=== PATIENT | female | born 1960 | race Caucasian/White ===

== ENCOUNTER → 2016-11-26 | Outpatient (REF) | payer MEDICAID ==
[2016-11-26 11:21] LABS: BASO % 0.7 % (0.0-1.0); EOS # 0.2 K/mm3 (0.0-0.50); EOS % 3.3 % (0.0-3.0); LARGE UNSTAINED CELL # 0.1 K/mm3 (0.0-0.4); LYMPH # 1.4 K/mm3 (1.5-4.5); LYMPH % 25.6 % (24.0-44.0); MEAN CORPUSCULAR HEMOGLOBIN 30.7 pg (27.0-33.0); MEAN CORPUSCULAR HGB CONC 33.4 g/dl (32.0-36.5); MEAN CORPUSCULAR VOLUME 92.1 fl (80.0-96.0); MONO # 0.2 K/mm3 (0.0-0.8); MONO % 4.4 % (0.0-5.0); NEUTROPHILS # 3.1 K/mm3 (1.8-7.7); NEUTROPHILS % 64.1 % (36.0-66.0); PLATELET COUNT, AUTOMATED 249 k/mm3 (150-450); RED CELL DISTRIBUTION WIDTH 13.4 % (11.5-14.5); WHITE BLOOD COUNT 4.9 K/mm3 (4.0-10.0)
[2016-11-26 11:29] LABS: ALBUMIN 3.7 GM/DL (3.2-5.2); ALBUMIN/GLOBULIN RATIO 0.93 (1.00-1.93); ALKALINE PHOSPHATASE 87 U/L (45-117); ALT/SGPT 15 U/L (12-78); ANION GAP 6 MEQ/L (8-16); AST/SGOT 31 U/L (15-37); BILIRUBIN,TOTAL 0.3 MG/DL (0.2-1.0); BLOOD UREA NITROGEN 15 MG/DL (7-18); CALCIUM LEVEL 8.8 MG/DL (8.5-10.1); CARBON DIOXIDE LEVEL 29 MEQ/L (21-32); CHLORIDE LEVEL 106 MEQ/L (98-107); CHOLESTEROL LEVEL 182 MG/DL (<200); FREE T4 1.06 NG/DL (0.76-1.46); GAMMA GLUTAMYLTRANSPEPTIDASE 13 U/L (5-55); GLOMERULAR FILTRATION RATE > 60.0 (>51); GLUCOSE, FASTING 86 MG/DL (70-105); POTASSIUM SERUM 4.5 MEQ/L (3.5-5.1); SODIUM LEVEL 141 MEQ/L (136-145); TOTAL PROTEIN 7.7 GM/DL (6.4-8.2); TRIGLYCERIDES LEVEL 72 MG/DL (<150)
== END ==
LOC: M SFHCCLAY 08:35
PROVIDERS: ATTEND Physician Assistant
DX: Z13.6 Encounter for screening for cardiovascular disorders (principal); R93.2 Abnormal findings on diagnostic imaging of liver and biliary tract

== ENCOUNTER → 2017-09-14 | Outpatient (REF) | payer OTHER | LOC: M LAB REF 09:22 | DX: J02.9 Acute pharyngitis, unspecified (principal) ==

== ENCOUNTER → 2019-07-28 | Outpatient (REF) | payer OTHER ==
[2019-07-28 11:59] LABS: BASO # 0.1 10^3/uL (0.0-0.2); BASO % 1.1 % (0.0-1.0); EOS # 0.1 10^3/uL (0.0-0.5); EOS % 2.5 % (0.0-3.0); HEMATOCRIT 38.3 % (36.0-47.0); HEMOGLOBIN 12.7 g/dl (12.0-15.5); LYMPH # 1.4 10^3/uL (1.5-5.0); MEAN CORPUSCULAR HEMOGLOBIN 30.8 pg (27.0-33.0); MEAN CORPUSCULAR HGB CONC 33.2 g/dl (32.0-36.5); MEAN CORPUSCULAR VOLUME 92.7 fl (80.0-96.0); MONO # 0.7 10^3/uL (0.0-0.8); MONO % 12.7 % (0.0-5.0); NEUTROPHILS % 57.3 % (36.0-66.0); PLATELET COUNT, AUTOMATED 239 10^3/uL (150-450); RED BLOOD COUNT 4.13 10^6/uL (4.00-5.40); WHITE BLOOD COUNT 5.3 10^3/uL (4.0-10.0)
[2019-07-28 13:33] LABS: ALT/SGPT 21 U/L (12-78); BILIRUBIN,TOTAL 0.5 MG/DL (0.2-1.0); BLOOD UREA NITROGEN 16 MG/DL (7-18); CALCIUM LEVEL 9.3 MG/DL (8.5-10.1); CARBON DIOXIDE LEVEL 26 MEQ/L (21-32); CHLORIDE LEVEL 108 MEQ/L (98-107); CHOLESTEROL LEVEL 201 MG/DL (<200); CHOLESTEROL RISK RATIO 2.161 (<5); CREATININE FOR GFR 0.92 MG/DL (0.55-1.30); GLOMERULAR FILTRATION RATE > 60.0 (>51); GLUCOSE, FASTING 87 MG/DL (70-100); HDL CHOLESTEROL 93 MG/DL (>40); LDL CHOLESTEROL 99 MG/DL (<100); NON-HDL-C 108 MG/DL; POTASSIUM SERUM 4.4 MEQ/L (3.5-5.1); SODIUM LEVEL 139 MEQ/L (136-145); TOTAL PROTEIN 8.2 GM/DL (6.4-8.2); TRIGLYCERIDES LEVEL 43 MG/DL (<150)
== END ==
LOC: M SFHCCAPE 08:01
PROVIDERS: ATTEND Physician Assistant
DX: Z00.00 Encounter for general adult medical examination without abnormal findings (principal)

== ENCOUNTER → 2021-02-20 | Outpatient (REF) | payer OTHER | LOC: M SFHCCAPE 13:33 | PROVIDERS: ATTEND Physician Assistant | DX: J22 Unspecified acute lower respiratory infection (principal); J02.9 Acute pharyngitis, unspecified ==

== ENCOUNTER → 2022-08-09 | Outpatient (REF) | payer OTHER ==
[2022-08-09 18:29] LABS: BASO % 0.8 % (0.0-1.0); EOS # 0.1 10^3/uL (0.0-0.5); EOS % 1.9 % (0.0-3.0); HEMATOCRIT 38.6 % (36.0-47.0); HEMOGLOBIN 12.6 g/dl (12.0-15.5); LYMPH # 1.1 10^3/uL (1.5-5.0); LYMPH % 23.3 % (24.0-44.0); MEAN CORPUSCULAR HGB CONC 32.6 g/dl (32.0-36.5); MEAN CORPUSCULAR VOLUME 94.8 fl (80.0-96.0); MONO # 0.5 10^3/uL (0.0-0.8); MONO % 10.4 % (2.0-8.0); NEUTROPHILS % 63.4 % (36.0-66.0); PLATELET COUNT, AUTOMATED 221 10^3/uL (150-450); RED BLOOD COUNT 4.07 10^6/uL (4.00-5.40); WHITE BLOOD COUNT 4.7 10^3/uL (4.0-10.0)
[2022-08-09 18:43] LABS: ERYTHROCYTE SEDIMENTATION RATE 35 mm/hr (0-30)
[2022-08-09 18:56] LABS: C REACTIVE PROTEIN QUANTITATIV < 0.40 MG/DL (<1.0); CPK CREATINE PHOSPHOKINASE 55 U/L (34-145)
[2022-08-09 18:57] LABS: ALBUMIN 4.1 G/DL (3.2-5.2); ALKALINE PHOSPHATASE 96 U/L (46-116); ALT/SGPT 23 U/L (7.0-40); AST/SGOT 43 U/L (<34); BILIRUBIN,TOTAL 0.5 MG/DL (0.3-1.2); BLOOD UREA NITROGEN 14 MG/DL (9-23); CALCIUM LEVEL 8.9 MG/DL (8.3-10.6); CARBON DIOXIDE LEVEL 26 MMOL/L (20-31); CHLORIDE LEVEL 101 MMOL/L (98-107); CREATININE FOR GFR 0.77 MG/DL (0.55-1.30); GLOMERULAR FILTRATION RATE > 60.0 (>45); GLUCOSE, FASTING 86 MG/DL (74-106); MAGNESIUM LEVEL 1.8 MG/DL (1.8-2.4); POTASSIUM SERUM 4.2 MMOL/L (3.5-5.1); SODIUM LEVEL 134 MMOL/L (136-145); TOTAL PROTEIN 7.4 G/DL (5.7-8.2)
[2022-08-09 18:58] LABS: VITAMIN B12 LEVEL 358 PG/ML (211-911)
[2022-08-11 21:08] LABS: ANA (HEP2) Positive (.)
== END ==
LOC: M SFHCCAPE 11:26
PROVIDERS: ATTEND Physician Assistant
DX: R25.2 Cramp and spasm (principal); R68.2 Dry mouth, unspecified

== ENCOUNTER → 2022-09-19 | Outpatient (REF) | payer OTHER ==
[2022-09-19 17:46] LABS: FREE T4 1.05 NG/DL (0.89-1.76)
[2022-09-19 17:47] LABS: THYROID STIMULATING HORMONE 1.591 uIU/ML (0.55-4.78)
== END ==
LOC: M SFHCCAPE 10:24
PROVIDERS: ATTEND Physician Assistant
DX: L65.9 Nonscarring hair loss, unspecified (principal)

== ENCOUNTER → 2022-09-19 | Outpatient (CLI) | payer OTHER | LOC: M CLY 11:05 | PROVIDERS: ATTEND Physician Assistant | DX: R05.1 Acute cough (principal); R91.8 Other nonspecific abnormal finding of lung field ==

== ENCOUNTER → 2022-10-04 | Outpatient (CLI) | payer OTHER | LOC: M RAD 08:48 | PROVIDERS: ATTEND Physician Assistant | DX: R91.1 Solitary pulmonary nodule (principal) ==

== ENCOUNTER → 2022-12-24 | Outpatient (REF) | payer OTHER ==
[2022-12-24 18:38] LABS: BASO # 0.1 10^3/uL (0.0-0.2); EOS # 0.2 10^3/uL (0.0-0.5); EOS % 4.6 % (0.0-3.0); HEMATOCRIT 42.1 % (36.0-47.0); HEMOGLOBIN 13.6 g/dl (12.0-15.5); LYMPH # 1.4 10^3/uL (1.5-5.0); LYMPH % 28.2 % (24.0-44.0); MEAN CORPUSCULAR HEMOGLOBIN 30.6 pg (27.0-33.0); MEAN CORPUSCULAR HGB CONC 32.3 g/dl (32.0-36.5); MEAN CORPUSCULAR VOLUME 94.6 fl (80.0-96.0); MONO # 0.5 10^3/uL (0.0-0.8); MONO % 10.2 % (2.0-8.0); NEUTROPHILS # 2.7 10^3/uL (1.5-8.5); NEUTROPHILS % 55.8 % (36.0-66.0); PLATELET COUNT, AUTOMATED 219 10^3/uL (150-450); RED BLOOD COUNT 4.45 10^6/uL (4.00-5.40); WHITE BLOOD COUNT 4.8 10^3/uL (4.0-10.0)
[2022-12-24 18:41] LABS: APPEARANCE, URINE CLEAR (CLEAR); BACTERIA, URINE AUTO NEGATIVE (NEGATIVE); BILIRUBIN, URINE AUTO NEGATIVE (NEGATIVE); BLOOD, URINE BLOOD NEGATIVE (NEGATIVE); COLOR, URINE YELLOW (YELLOW); GLUCOSE, URINE (UA) AUTO NEGATIVE (NEGATIVE); KETONE, URINE AUTO NEGATIVE (NEGATIVE); LEUKOCYTE ESTERASE, URINE AUTO NEGATIVE (NEGATIVE); NITRITE, URINE AUTO NEGATIVE (NEGATIVE); PROTEIN, URINE AUTO NEGATIVE (NEGATIVE); RBC, URINE AUTO 0 /HPF (0-3); SPECIFIC GRAVITY URINE AUTO 1.009 (1.002-1.035); SQUAMOUS EPITHELIAL CELL UR AU 0 /HPF (0-6); UROBILINOGEN, URINE AUTO 0.2 mg/dL (0.0-2.0); WBC, URINE AUTO 0 /HPF (0-3)
[2022-12-24 18:49] LABS: C REACTIVE PROTEIN QUANTITATIV < 0.40 MG/DL (<1.0)
[2022-12-24 18:50] LABS: COMPLEMENT C3 99.2 MG/DL (90.0-170.0); COMPLEMENT C4 24.9 MG/DL (12-36)
[2022-12-24 18:51] LABS: ALBUMIN 3.6 G/DL (3.2-5.2); ALKALINE PHOSPHATASE 88 U/L (46-116); ALT/SGPT 20 U/L (7.0-40); AST/SGOT 40 U/L (<34); BILIRUBIN,TOTAL 0.5 MG/DL (0.3-1.2); BLOOD UREA NITROGEN 14 MG/DL (9-23); CALCIUM LEVEL 8.9 MG/DL (8.3-10.6); CARBON DIOXIDE LEVEL 25 MMOL/L (20-31); CHLORIDE LEVEL 105 MMOL/L (98-107); CREATININE FOR GFR 0.77 MG/DL (0.55-1.30); GLOMERULAR FILTRATION RATE > 60.0 (>45); GLUCOSE, FASTING 93 MG/DL (74-106); POTASSIUM SERUM 4.2 MMOL/L (3.5-5.1); SODIUM LEVEL 138 MMOL/L (136-145); TOTAL PROTEIN 7.4 G/DL (5.7-8.2)
[2022-12-24 19:01] LABS: ERYTHROCYTE SEDIMENTATION RATE 42 mm/hr (0-30); TOTAL PROTEIN,RANDOM URINE 7.4 MG/DL (0.0-14.0)
[2022-12-24 19:06] LABS: CREATININE,RANDOM URINE 38.8 MG/DL
== END ==
LOC: M SFHCRHEU 08:17
PROVIDERS: ATTEND Internal Medicine Rheumatology
DX: M35.00 Sjogren syndrome, unspecified (principal); M25.50 Pain in unspecified joint; R76.8 Other specified abnormal immunological findings in serum; R06.02 Shortness of breath

== ENCOUNTER → 2023-05-16 | Outpatient (REF) | payer OTHER ==
[2023-05-16 18:22] LABS: BASO % 0.8 % (0.0-1.0); EOS # 0.3 10^3/uL (0.0-0.5); EOS % 5.1 % (0.0-3.0); HEMATOCRIT 38.3 % (36.0-47.0); HEMOGLOBIN 12.6 g/dl (12.0-15.5); LYMPH # 1.6 10^3/uL (1.5-5.0); LYMPH % 32.3 % (24.0-44.0); MEAN CORPUSCULAR HEMOGLOBIN 31.8 pg (27.0-33.0); MEAN CORPUSCULAR HGB CONC 32.9 g/dl (32.0-36.5); MEAN CORPUSCULAR VOLUME 96.7 fl (80.0-96.0); MONO # 0.5 10^3/uL (0.0-0.8); MONO % 9.4 % (2.0-8.0); NEUTROPHILS # 2.6 10^3/uL (1.5-8.5); NEUTROPHILS % 52.2 % (36.0-66.0); PLATELET COUNT, AUTOMATED 228 10^3/uL (150-450); RED BLOOD COUNT 3.96 10^6/uL (4.00-5.40); WHITE BLOOD COUNT 4.9 10^3/uL (4.0-10.0)
[2023-05-16 18:27] LABS: ALBUMIN 3.5 G/DL (3.2-5.2); ALKALINE PHOSPHATASE 92 U/L (46-116); ALT/SGPT 21 U/L (7.0-40); AST/SGOT 38 U/L (<34); BILIRUBIN,TOTAL 0.6 MG/DL (0.3-1.2); BLOOD UREA NITROGEN 14 MG/DL (9-23); CALCIUM LEVEL 8.7 MG/DL (8.3-10.6); CARBON DIOXIDE LEVEL 27 MMOL/L (20-31); CHLORIDE LEVEL 104 MMOL/L (98-107); CHOLESTEROL LEVEL 183 MG/DL (<200); CHOLESTEROL RISK RATIO 1.98 (<5); CREATININE FOR GFR 0.78 MG/DL (0.55-1.30); GLOMERULAR FILTRATION RATE > 60.0 (>45); GLUCOSE, FASTING 88 MG/DL (74-106); LDL CHOLESTEROL 82.6 MG/DL (<100); POTASSIUM SERUM 4.4 MMOL/L (3.5-5.1); SODIUM LEVEL 137 MMOL/L (136-145); TOTAL PROTEIN 7.1 G/DL (5.7-8.2); TRIGLYCERIDES LEVEL 42 MG/DL (<150)
[2023-05-16 18:30] LABS: FREE T4 0.91 NG/DL (0.89-1.76)
[2023-05-16 18:31] LABS: THYROID STIMULATING HORMONE 3.647 uIU/ML (0.55-4.78)
[2023-05-16 18:32] LABS: TOTAL 25(OH) VITAMIN D 60.4 NG/ML (20.0-100.0)
== END ==
LOC: M SFHCCAPE 09:46
PROVIDERS: ATTEND Physician Assistant Medical
DX: M35.01 Sjogren syndrome with keratoconjunctivitis (principal); F41.9 Anxiety disorder, unspecified; Z13.220 Encounter for screening for lipoid disorders

== ENCOUNTER → 2023-06-21 | Outpatient (REF) | payer OTHER | LOC: M SFHCRHEU 09:35 | PROVIDERS: ATTEND Internal Medicine Rheumatology | DX: M35.01 Sjogren syndrome with keratoconjunctivitis (principal); F41.9 Anxiety disorder, unspecified; R76.8 Other specified abnormal immunological findings in serum; M25.50 Pain in unspecified joint; R06.02 Shortness of breath ==

== ENCOUNTER → 2023-06-26 | Outpatient (REF) | payer OTHER ==
[2023-06-26 17:36] LABS: APPEARANCE, URINE CLEAR (CLEAR); BACTERIA, URINE AUTO NEGATIVE (NEGATIVE); BILIRUBIN, URINE AUTO NEGATIVE (NEGATIVE); BLOOD, URINE BLOOD NEGATIVE (NEGATIVE); COLOR, URINE YELLOW (YELLOW); GLUCOSE, URINE (UA) AUTO NEGATIVE (NEGATIVE); KETONE, URINE AUTO NEGATIVE (NEGATIVE); LEUKOCYTE ESTERASE, URINE AUTO NEGATIVE (NEGATIVE); MUCUS, URINE SMALL (NEGATIVE); NITRITE, URINE AUTO NEGATIVE (NEGATIVE); PROTEIN, URINE AUTO 1+ mg/dL (NEGATIVE); RBC, URINE AUTO 1 /HPF (0-3); SPECIFIC GRAVITY URINE AUTO 1.017 (1.002-1.035); SQUAMOUS EPITHELIAL CELL UR AU 0 /HPF (0-6); UROBILINOGEN, URINE AUTO 0.2 mg/dL (0.0-2.0); WBC, URINE AUTO 1 /HPF (0-3)
[2023-06-26 18:30] LABS: TOTAL PROTEIN,RANDOM URINE 32.1 MG/DL (0.0-14.0)
[2023-06-26 18:32] LABS: CREATININE,RANDOM URINE 153.6 MG/DL
[2023-06-26 18:52] LABS: ALBUMIN 3.8 G/DL (3.2-5.2); ALKALINE PHOSPHATASE 103 U/L (46-116); ALT/SGPT 18 U/L (7.0-40); AST/SGOT 39 U/L (<34); BILIRUBIN,TOTAL 0.6 MG/DL (0.3-1.2); BLOOD UREA NITROGEN 12 MG/DL (9-23); CALCIUM LEVEL 8.9 MG/DL (8.3-10.6); CARBON DIOXIDE LEVEL 24 MMOL/L (20-31); CHLORIDE LEVEL 104 MMOL/L (98-107); CREATININE FOR GFR 0.72 MG/DL (0.55-1.30); GLOMERULAR FILTRATION RATE > 60.0 (>45); GLUCOSE, FASTING 85 MG/DL (74-106); POTASSIUM SERUM 3.9 MMOL/L (3.5-5.1); SODIUM LEVEL 137 MMOL/L (136-145); TOTAL PROTEIN 7.5 G/DL (5.7-8.2)
[2023-06-26 18:53] LABS: BASO % 0.6 % (0.0-1.0); EOS # 0.1 10^3/uL (0.0-0.5); EOS % 2.1 % (0.0-3.0); HEMATOCRIT 39.4 % (36.0-47.0); HEMOGLOBIN 12.9 g/dl (12.0-15.5); LYMPH # 1.4 10^3/uL (1.5-5.0); LYMPH % 21.4 % (24.0-44.0); MEAN CORPUSCULAR HEMOGLOBIN 31.9 pg (27.0-33.0); MEAN CORPUSCULAR HGB CONC 32.7 g/dl (32.0-36.5); MEAN CORPUSCULAR VOLUME 97.5 fl (80.0-96.0); MONO # 0.5 10^3/uL (0.0-0.8); MONO % 7.2 % (2.0-8.0); NEUTROPHILS # 4.6 10^3/uL (1.5-8.5); NEUTROPHILS % 68.6 % (36.0-66.0); PLATELET COUNT, AUTOMATED 260 10^3/uL (150-450); RED BLOOD COUNT 4.04 10^6/uL (4.00-5.40); WHITE BLOOD COUNT 6.7 10^3/uL (4.0-10.0)
[2023-06-26 19:00] LABS: ERYTHROCYTE SEDIMENTATION RATE 55 mm/hr (0-30)
[2023-06-27 13:33] LABS: COMPLEMENT C3 123.2 MG/DL (90.0-170.0)
[2023-06-27 13:34] LABS: COMPLEMENT C4 25.4 MG/DL (12-36)
== END ==
LOC: M SFHCCAPE 09:46
PROVIDERS: ATTEND Internal Medicine Rheumatology
DX: M35.01 Sjogren syndrome with keratoconjunctivitis (principal); R76.8 Other specified abnormal immunological findings in serum; M25.50 Pain in unspecified joint; R06.02 Shortness of breath

== ENCOUNTER → 2024-04-09 | Outpatient (CLI) | payer OTHER | LOC: M CLY 11:24 | PROVIDERS: ATTEND Physician Assistant Medical | DX: R05.1 Acute cough (principal) ==

== ENCOUNTER → 2024-05-19 | Outpatient (REF) | payer OTHER ==
[2024-05-19 17:26] LABS: APPEARANCE, URINE HAZY (CLEAR); BACTERIA, URINE AUTO NEGATIVE (NEGATIVE); BILIRUBIN, URINE AUTO NEGATIVE (NEGATIVE); BLOOD, URINE BLOOD NEGATIVE (NEGATIVE); COLOR, URINE YELLOW (YELLOW); GLUCOSE, URINE (UA) AUTO NEGATIVE (NEGATIVE); KETONE, URINE AUTO NEGATIVE (NEGATIVE); LEUKOCYTE ESTERASE, URINE AUTO NEGATIVE (NEGATIVE); MUCUS, URINE SMALL (NEGATIVE); NITRITE, URINE AUTO NEGATIVE (NEGATIVE); PROTEIN, URINE AUTO NEGATIVE (NEGATIVE); RBC, URINE AUTO 0 /HPF (0-3); SPECIFIC GRAVITY URINE AUTO 1.018 (1.002-1.035); SQUAMOUS EPITHELIAL CELL UR AU 4 /HPF (0-6); UROBILINOGEN, URINE AUTO 0.2 mg/dL (0.0-2.0); WBC, URINE AUTO 1 /HPF (0-3)
[2024-05-19 17:34] LABS: BASO % 0.9 % (0.0-1.0); EOS # 0.1 10^3/uL (0.0-0.5); EOS % 2.9 % (0.0-3.0); HEMATOCRIT 42.1 % (36.0-47.0); HEMOGLOBIN 13.5 g/dl (12.0-15.5); LYMPH # 0.6 10^3/uL (1.5-5.0); MEAN CORPUSCULAR HGB CONC 32.1 g/dl (32.0-36.5); MEAN CORPUSCULAR VOLUME 93.6 fl (80.0-96.0); MONO # 0.4 10^3/uL (0.0-0.8); MONO % 11.9 % (2.0-8.0); NEUTROPHILS # 2.3 10^3/uL (1.5-8.5); PLATELET COUNT, AUTOMATED 201 10^3/uL (150-450); WHITE BLOOD COUNT 3.4 10^3/uL (4.0-10.0)
[2024-05-19 17:43] LABS: ERYTHROCYTE SEDIMENTATION RATE 31 mm/hr (0-30)
[2024-05-19 17:47] LABS: ALBUMIN 3.6 G/DL (3.2-5.2); ALKALINE PHOSPHATASE 116 U/L (35-104); ALT/SGPT 29 U/L (7.0-40); AST/SGOT 53 U/L (<34); BILIRUBIN,TOTAL 0.5 MG/DL (0.3-1.2); BLOOD UREA NITROGEN 21 MG/DL (9-23); C REACTIVE PROTEIN QUANTITATIV 0.92 MG/DL (<1.0); CALCIUM LEVEL 8.9 MG/DL (8.3-10.6); CARBON DIOXIDE LEVEL 29 MMOL/L (20-31); CHLORIDE LEVEL 102 MMOL/L (98-107); COMPLEMENT C3 109.2 MG/DL (90.0-170.0); COMPLEMENT C4 24.9 MG/DL (12-36); CREATININE FOR GFR 0.96 MG/DL (0.55-1.30); GLOMERULAR FILTRATION RATE > 60.0 (>45); GLUCOSE, FASTING 73 MG/DL (74-106); IMMUNOGLOBULIN A 109.1 MG/DL (40-350); IMMUNOGLOBULIN G 1459 MG/DL (650-1600); POTASSIUM SERUM 4.1 MMOL/L (3.5-5.1); SODIUM LEVEL 141 MMOL/L (136-145); TOTAL PROTEIN 7.4 G/DL (5.7-8.2)
[2024-05-19 17:50] LABS: IMMUNOGLOBULIN M 505.4 MG/DL (50-300)
[2024-05-19 18:12] LABS: TOTAL PROTEIN,RANDOM URINE 24.6 MG/DL (0.0-14.0)
[2024-05-20 18:52] LABS: CRYOGLOBULINS NEGATIVE (NEGATIVE)
== END ==
LOC: M SFHCCAPE 10:46
PROVIDERS: ATTEND Internal Medicine Rheumatology
DX: M35.01 Sjogren syndrome with keratoconjunctivitis (principal); R76.8 Other specified abnormal immunological findings in serum; M25.50 Pain in unspecified joint; R06.02 Shortness of breath

== ENCOUNTER → 2024-07-30 | Outpatient (CLI) | payer OTHER | LOC: M PLAIMG 10:26 | PROVIDERS: ATTEND Internal Medicine Pulmonary Disease | DX: J43.1 Panlobular emphysema (principal); R06.02 Shortness of breath ==

== ENCOUNTER → 2024-08-10 | Outpatient (CLI) | payer OTHER | LOC: M PLAIMG 06:58 | PROVIDERS: ATTEND Internal Medicine Pulmonary Disease | DX: J43.2 Centrilobular emphysema (principal); J84.9 Interstitial pulmonary disease, unspecified ==

== ENCOUNTER → 2024-08-18 | Outpatient (REF) | payer OTHER ==
[2024-08-18 18:19] LABS: URIC ACID 3.8 MG/DL (3.1-7.8)
[2024-08-18 18:21] LABS: C REACTIVE PROTEIN QUANTITATIV 3.14 MG/DL (<1.0)
[2024-08-18 18:22] LABS: ALBUMIN 3.5 G/DL (3.2-5.2); ALKALINE PHOSPHATASE 121 U/L (35-104); ALT/SGPT 16 U/L (7.0-40); AST/SGOT 34 U/L (<34); BILIRUBIN,TOTAL 0.4 MG/DL (0.3-1.2); BLOOD UREA NITROGEN 14 MG/DL (9-23); CALCIUM LEVEL 9.4 MG/DL (8.3-10.6); CARBON DIOXIDE LEVEL 27 MMOL/L (20-31); CHLORIDE LEVEL 102 MMOL/L (98-107); CREATININE FOR GFR 0.73 MG/DL (0.55-1.30); GLOMERULAR FILTRATION RATE > 90.0 (>45); GLUCOSE, FASTING 93 MG/DL (74-106); POTASSIUM SERUM 4.6 MMOL/L (3.5-5.1); SODIUM LEVEL 137 MMOL/L (136-145); TOTAL PROTEIN 7.5 G/DL (5.7-8.2)
[2024-08-18 18:23] LABS: THYROID STIMULATING HORMONE 2.233 uIU/ML (0.55-4.78)
[2024-08-18 18:26] LABS: BASO # 0.1 10^3/uL (0.0-0.2); BASO % 0.8 % (0.0-1.0); EOS # 0.2 10^3/uL (0.0-0.5); EOS % 3.7 % (0.0-3.0); HEMOGLOBIN 13.7 g/dl (12.0-15.5); LYMPH # 1.3 10^3/uL (1.5-5.0); LYMPH % 21.4 % (24.0-44.0); MEAN CORPUSCULAR HEMOGLOBIN 30.2 pg (27.0-33.0); MEAN CORPUSCULAR HGB CONC 32.6 g/dl (32.0-36.5); MEAN CORPUSCULAR VOLUME 92.5 fl (80.0-96.0); MONO # 0.6 10^3/uL (0.0-0.8); MONO % 9.3 % (2.0-8.0); NEUTROPHILS # 3.8 10^3/uL (1.5-8.5); NEUTROPHILS % 64.5 % (36.0-66.0); PLATELET COUNT, AUTOMATED 330 10^3/uL (150-450); RED BLOOD COUNT 4.54 10^6/uL (4.00-5.40); WHITE BLOOD COUNT 5.9 10^3/uL (4.0-10.0)
[2024-08-18 19:31] LABS: ERYTHROCYTE SEDIMENTATION RATE 66 mm/hr (0-30)
[2024-08-24 12:23] LABS: LYME TOTAL ANTIBODY CIA <= 0.90 Index (<=0.90)
== END ==
LOC: M SFHCCLAY 10:58
PROVIDERS: ATTEND Physician Assistant Medical
DX: M79.89 Other specified soft tissue disorders (principal)

== ENCOUNTER → 2024-12-23 | Outpatient (REF) | payer OTHER ==
[2024-12-23 19:30] LABS: BASO # 0.1 10^3/uL (0.0-0.2); BASO % 0.9 % (0.0-1.0); EOS # 0.4 10^3/uL (0.0-0.5); EOS % 5.2 % (0.0-3.0); LYMPH # 1.4 10^3/uL (1.5-5.0); LYMPH % 16.8 % (24.0-44.0); MONO # 0.7 10^3/uL (0.0-0.8); MONO % 8.2 % (2.0-8.0); NEUTROPHILS # 5.6 10^3/uL (1.5-8.5); NEUTROPHILS % 68.4 % (36.0-66.0); PLATELET COUNT, AUTOMATED 210 10^3/uL (150-450)
[2024-12-23 19:35] LABS: ERYTHROCYTE SEDIMENTATION RATE 32 mm/hr (0-30)
[2024-12-23 19:38] LABS: ALT/SGPT 19 U/L (7.0-40); AST/SGOT 40 U/L (<34); C REACTIVE PROTEIN QUANTITATIV 2.33 MG/DL (<1.0); CALCIUM LEVEL 9.5 MG/DL (8.3-10.6); CARBON DIOXIDE LEVEL 28 MMOL/L (20-31); CHLORIDE LEVEL 102 MMOL/L (98-107); COMPLEMENT C4 28.2 MG/DL (12-36); CREATININE FOR GFR 0.80 MG/DL (0.55-1.30); GLOMERULAR FILTRATION RATE 82.2 (>45); POTASSIUM SERUM 4.2 MMOL/L (3.5-5.1); SODIUM LEVEL 140 MMOL/L (136-145)
[2024-12-23 19:41] LABS: AMORPHOUS SEDIMENT SMALL (NEGATIVE); APPEARANCE, URINE HAZY (CLEAR); BACTERIA, URINE AUTO NEGATIVE (NEGATIVE); BILIRUBIN, URINE AUTO NEGATIVE (NEGATIVE); BLOOD, URINE BLOOD NEGATIVE (NEGATIVE); CALCIUM OXALATE CRYSTALS SMALL; GLUCOSE, URINE (UA) AUTO NEGATIVE (NEGATIVE); KETONE, URINE AUTO NEGATIVE (NEGATIVE); LEUKOCYTE ESTERASE, URINE AUTO NEGATIVE (NEGATIVE); MUCUS, URINE SMALL (NEGATIVE); NITRITE, URINE AUTO NEGATIVE (NEGATIVE); PROTEIN, URINE AUTO NEGATIVE (NEGATIVE); RBC, URINE AUTO 0 /HPF (0-3); SPECIFIC GRAVITY URINE AUTO 1.016 (1.002-1.035); SQUAMOUS EPITHELIAL CELL UR AU 0 /HPF (0-6); UROBILINOGEN, URINE AUTO 0.2 mg/dL (0.0-2.0); WBC, URINE AUTO 0 /HPF (0-3)
[2024-12-23 20:02] LABS: TOTAL PROTEIN,RANDOM URINE 36.9 MG/DL (0.0-14.0)
[2024-12-24 19:49] LABS: CRYOGLOBULINS NEGATIVE (NEGATIVE)
[2024-12-25 11:07] LABS: PROTEIN, TOTAL SO 7.3 g/dL (6.1-8.1)
== END ==
LOC: M LAB REF 09:40
PROVIDERS: ATTEND Internal Medicine Rheumatology
DX: R76.8 Other specified abnormal immunological findings in serum (principal); M25.50 Pain in unspecified joint; R06.02 Shortness of breath; M35.00 Sjogren syndrome, unspecified